=== PATIENT | female | born 1950 | race Caucasian/White ===

== ENCOUNTER 2017-07-24 08:46 | Day surgery (SDC) | payer OTHER ==
[2017-07-19 11:15] VITALS: BMI 26.4
[2017-07-24] MEDS ORDERED: PROPOFOL 20 ML ONE ×2 (09:13)
[2017-07-24] MEDS ORDERED: LIDOCAINE HCL/PF 2% SDV 5ML VIAL ONE (09:13)
[2017-07-24 11:22] VITALS: TEMP 97.7
[2017-07-24 11:50] VITALS: BP 121/69; PULSE 62
--- NOTE | 2017-07-26 14:33 | PATH ---
Surgical Pathology Report Patient Name: KALPANA PALACIOS [facility]. Rec. #: [id number] /Age/Gender: 1950 (Age: 67) / F Account: [id number] Location: [facility] Taken: 07/24/2017 Received: 07/24/2017 Reported: 07/26/2017 Physicians: Matilde Leonardo M.D. Specimen(s) Received A: RIGHT COLON B: TRANSVERSE COLON C: DESCENDING COLON D: RECTUM Clinical History Rule out colon cancer Postoperative diagnosis: Rule out microscopic colitis, diverticulosis, polyps Final Diagnosis A. COLON, RIGHT, BIOPSY: COLONIC MUCOSA WITH PROMINENT LYMPHOID AGGREGATES. B. TRANSVERSE COLON, BIOPSY: COLONIC MUCOSA WITH LYMPHOID AGGREGATE. C. DESCENDING COLON, BIOPSY: COLONIC MUCOSA WITH SMALL LYMPHOID AGGREGATE. D. BIOPSY: HYPERPLASTIC POLYP. Comment: No features of microscopic/lymphocytic colitis identified. Electronically Signed Matilde Marie M.D. Gross Description A. Received in formalin, labeled "right colon" are 2 valdes, irregular portions of soft tissue measuring 0.2 and 0.3 cm. in greatest dimension. The specimens are submitted in toto in one cassette. B. Received in formalin, labeled "transverse colon" are 2 valdes, irregular portions of soft tissue measuring 0.2 cm. in greatest dimension. The specimens are submitted in toto in one cassette. C. Received in formalin, labeled "descending colon" are 2 valdes, irregular portions of soft tissue measuring 0.3 and 0.4 cm. in greatest dimension. The specimens are submitted in toto in one cassette. D. Received in formalin, labeled "rectum" are 3 valdes, irregular portions of soft tissue ranging in size from 0.3-0.4 cm. in greatest dimension. The specimens are submitted in toto in [one] cassette. DAHIANA/07/25/2017 jazz/07/25/2017
== END 2017-07-24 12:07 | disposition home or self-care (01) ==
LOC: FASU-ENDO 08:46
PROVIDERS: ATTEND Internal Medicine Gastroenterology
PROC: 0DBL8ZX Excision of Transverse Colon, Via Natural or Artificial Opening Endoscopic, Diagnostic (ICD-10-PCS; 2017-07-24)
PROC: 0DBN8ZX Excision of Sigmoid Colon, Via Natural or Artificial Opening Endoscopic, Diagnostic (ICD-10-PCS; 2017-07-24)
PROC: 0DBP8ZX Excision of Rectum, Via Natural or Artificial Opening Endoscopic, Diagnostic (ICD-10-PCS; 2017-07-24)
PROC: 0DBM8ZX Excision of Descending Colon, Via Natural or Artificial Opening Endoscopic, Diagnostic (ICD-10-PCS; 2017-07-24)
PROC: 0DBH8ZX Excision of Cecum, Via Natural or Artificial Opening Endoscopic, Diagnostic (ICD-10-PCS; 2017-07-24)
PROC: 0DBK8ZX Excision of Ascending Colon, Via Natural or Artificial Opening Endoscopic, Diagnostic (ICD-10-PCS; principal; 2017-07-24 10:15)
DX: Z12.11 Encounter for screening for malignant neoplasm of colon (principal); K64.0 First degree hemorrhoids; D64.9 Anemia, unspecified; K63.89 Other specified diseases of intestine; K63.5 Polyp of colon

== ENCOUNTER 2021-04-18 20:37 | Emergency (ER) | payer OTHER ==
[2021-04-18 20:44] VITALS: BP 164/78; PULSE 81; TEMP 98.1; BMI 30.2
[2021-04-18] MEDS ORDERED: DIPHTH,PERTUSS(ACELL),TET 0.5 ML DISP.SYRIN IM ONE ×2 (22:59→23:09)
== END 2021-04-19 00:14 | disposition home or self-care (01) ==
LOC: JERFT 20:37
PROC: 3E0234Z Introduction of Serum, Toxoid and Vaccine into Muscle, Percutaneous Approach (ICD-10-PCS; principal; 2021-04-18)
DX: S01.01XA Laceration without foreign body of scalp, initial encounter (principal); W19.XXXA Unspecified fall, initial encounter; Y92.9 Unspecified place or not applicable
CPT/HCPCS: 70450-TC; 90471; 90715; 99284-25

== ENCOUNTER 2021-04-24 06:54 | Emergency (ER) | payer OTHER ==
[2021-04-24 07:16] VITALS: BP 132/71; PULSE 72; TEMP 98.7; BMI 25.4
== END 2021-04-24 07:30 | disposition home or self-care (01) ==
LOC: JER 06:54 → JERFT 06:54
DX: Z48.02 Encounter for removal of sutures (principal)
CPT/HCPCS: 99281-25

== ENCOUNTER 2021-09-22 08:00 | Day surgery (SDC) | payer OTHER ==
[2021-09-20 12:45] VITALS: BMI 26.7
[2021-09-22] MEDS ORDERED: PHENYLEPHRINE 2.5% OPHTH SOLN 15 ML BOTTLE ONE (08:26)
[2021-09-22] MEDS ORDERED: CIPROFLOXACIN 0.3% EYE DROPS 5 ML BOTTLE ONE (08:26)
[2021-09-22] MEDS ORDERED: CYCLOPENTOLATE 2% OPHTH SOLN 2 ML BOTTLE ONE (08:26)
[2021-09-22] MEDS ORDERED: TROPICAMIDE 1% OPHTH SOLN 15 ML BOTTLE ONE (08:26)
[2021-09-22] MEDS ORDERED: CYCLOPENTOLATE 2% OPHTH SOLN 2 ML BOTTLE OS ONE ×3 (08:30→08:40)
[2021-09-22] MEDS ORDERED: PHENYLEPHRINE 2.5% OPHTH SOLN 15 ML BOTTLE OS ONE ×3 (08:30→08:40)
[2021-09-22] MEDS ORDERED: CIPROFLOXACIN 0.3% EYE DROPS 5 ML BOTTLE OS ONE ×3 (08:30→08:40)
[2021-09-22] MEDS ORDERED: TROPICAMIDE 1% OPHTH SOLN 15 ML BOTTLE OS ONE ×3 (08:30→08:40)
[2021-09-22] MEDS ORDERED: LIDOCAINE 1% P/F 10 MG/ML VIAL ONE (09:00)
[2021-09-22] MEDS ORDERED: TETRACAINE 0.5% OPHTH SOLN 2 ML BOTTLE ONE (09:00)
[2021-09-22] MEDS ORDERED: BSS (NA/CA/MG/K) BALANCED SALT SOLUTION OPHTH SOLN 15 ML BOTTLE ONE (09:00)
[2021-09-22] MEDS ORDERED: CARBACHOL 0.01% INTRA-OCULAR 1.5 ML VIAL ONE (09:01)
[2021-09-22] MEDS ORDERED: NEO/POLYMYX B SULF/DEXAMETH OPHTHALMIC 5ML BOTTLE ONE (09:01)
[2021-09-22] MEDS ORDERED: MIDAZOLAM HCL 2 MG/2 ML SINGLE DOSE VIAL ONE (09:38)
[2021-09-22 13:13] VITALS: PULSE 62; TEMP 97.9
[2021-09-22 14:55] VITALS: BP 123/68
== END 2021-09-22 10:45 | disposition home or self-care (01) ==
LOC: FASU 08:00
PROVIDERS: ATTEND Ophthalmology
PROC: 08RK3JZ Replacement of Left Lens with Synthetic Substitute, Percutaneous Approach (ICD-10-PCS; principal; 2021-09-22 09:45)
DX: H26.8 Other specified cataract (principal)
CPT/HCPCS: 66984; V2632

== ENCOUNTER 2021-10-11 08:52 | Day surgery (SDC) | payer OTHER ==
[2021-10-04 11:10] VITALS: BMI 27.3
[2021-10-11] MEDS ORDERED: LIDOCAINE HCL/PF 1% SDV 5ML VIAL ONE (09:29)
[2021-10-11] MEDS ORDERED: EPINEPHrine/PF 1 MG/1 ML (1:1,000) AMPULE ONE (09:29)
[2021-10-11] MEDS ORDERED: NEO/POLYMYX B SULF/DEXAMETH OPHTHALMIC 5ML BOTTLE ONE (09:30)
[2021-10-11] MEDS ORDERED: CARBACHOL 0.01% INTRA-OCULAR 1.5 ML VIAL ONE (09:30)
[2021-10-11] MEDS ORDERED: BSS (NA/CA/MG/K) BALANCED SALT SOLUTION OPHTH SOLN 15 ML BOTTLE ONE (09:30)
[2021-10-11] MEDS ORDERED: TETRACAINE 0.5% OPHTH SOLN 2 ML BOTTLE ONE (09:30)
[2021-10-11] MEDS: PHENYLEPHRINE 2.5% OPHTH SOLN 15 ML BOTTLE ONE ×3 (10:00→10:10)
[2021-10-11] MEDS: TROPICAMIDE 1% OPHTH SOLN 15 ML BOTTLE ONE ×3 (10:00→10:10)
[2021-10-11] MEDS: CYCLOPENTOLATE 2% OPHTH SOLN 2 ML BOTTLE ONE ×3 (10:00→10:10)
[2021-10-11] MEDS: CIPROFLOXACIN 0.3% EYE DROPS 5 ML BOTTLE ONE ×3 (10:00→10:10)
[2021-10-11 10:08] VITALS: PULSE 64
[2021-10-11] MEDS ORDERED: MIDAZOLAM HCL 2 MG/2 ML SINGLE DOSE VIAL ONE (11:00)
[2021-10-11 11:38] VITALS: TEMP 97.8
[2021-10-11 12:24] VITALS: BP 121/74
== END 2021-10-11 12:15 | disposition home or self-care (01) ==
LOC: FASU 08:52
PROVIDERS: ATTEND Ophthalmology
PROC: 08RJ3JZ Replacement of Right Lens with Synthetic Substitute, Percutaneous Approach (ICD-10-PCS; principal; 2021-10-11 11:07)
DX: H26.8 Other specified cataract (principal)
CPT/HCPCS: 66984; V2632

== ENCOUNTER 2023-02-18 18:02 | Inpatient (IN) | payer OTHER ==
[2023-02-18 19:11] LABS: HEMATOCRIT 39.9 % (32.4-45.2); HEMOGLOBIN 13.3 G/dL (10.7-15.3); MCH 31.3 pg (25.7-33.7); MCHC 33.4 g/dl (32.0-36.0); MEAN CELL VOLUME 93.9 fl (80-96); MEAN PLT VOLUME 8.7 fl (7.5-11.1); RBC 4.25 10^6/uL (3.60-5.2); RDW 15.2 % (11.6-15.6); WHITE BLOOD COUNT 9.5 10^3/uL (4.0-10.8)
[2023-02-18 19:34] LABS: PLATELET ESTIMATE ADEQUATE
[2023-02-18 19:39] LABS: ALBUMIN 4.3 g/dl (3.4-5.0); BILIRUBIN,TOTAL 0.3 mg/dl (0.2-1); CALCIUM 9.5 mg/dl (8.5-10.1); CREATININE 0.7 mg/dl (0.6-1.3); POTASSIUM 3.7 mmol/L (3.5-5.1); TOT PROT 6.9 g/dl (6.4-8.2)
[2023-02-18 20:35] LABS: N-TERMINAL BNP 96.4 pg/ml (5-125)
[2023-02-18] MEDS ORDERED: ACETAMINOPHEN 325 MG TABLET (FP) ONE (22:33)
[2023-02-18] MEDS ORDERED: ACETAMINOPHEN 325 MG TABLET (FP) PO ONE (22:48)
[2023-02-19 03:31] VITALS: BMI 27.6
[2023-02-19 08:02] LABS: HEMATOCRIT 36.4 % (32.4-45.2); MCH 30.6 pg (25.7-33.7); MCHC 32.9 g/dl (32.0-36.0); MEAN CELL VOLUME 92.8 fl (80-96); MEAN PLT VOLUME 8.6 fl (7.5-11.1); PLATELET COUNT 238.7 10^3/uL (134-434); RBC 3.92 10^6/uL (3.60-5.2); RDW 14.8 % (11.6-15.6); WHITE BLOOD COUNT 7.9 10^3/uL (4.0-10.8)
[2023-02-19 08:39] LABS: CALCIUM 8.9 mg/dl (8.5-10.1); CREATININE 0.5 mg/dl (0.6-1.3); POTASSIUM 3.9 mmol/L (3.5-5.1)
[2023-02-19] MEDS: ENOXAPARIN NA (PORCINE) 40 MG/0.4 ML DISP.SYRIN SQ SCH (10:36)
[2023-02-19] MEDS ORDERED: ACETAMINOPHEN 325 MG TABLET (FP) PO PRN (15:18)
[2023-02-19 17:54] VITALS: RESP 17
[2023-02-19] MEDS ORDERED: ATORVASTATIN CA 40 MG TABLET (FP) PO SCH (22:00)
[2023-02-20 08:45] LABS: ALBUMIN 3.8 g/dl (3.4-5.0); BILIRUBIN,TOTAL 0.6 mg/dl (0.2-1); CREATININE 0.5 mg/dl (0.6-1.3); POTASSIUM 4.3 mmol/L (3.5-5.1)
[2023-02-20] MEDS: ENOXAPARIN NA (PORCINE) 40 MG/0.4 ML DISP.SYRIN SQ SCH (09:57)
[2023-02-20 10:03] VITALS: BP 129/74; PULSE 65; TEMP 98
[2023-02-20 11:30] LABS: BASO % 0.4 % (0-2.0); EOS % 1.7 % (0-4.5); HEMATOCRIT 36.8 % (32.4-45.2); HEMOGLOBIN 12.4 GM/dL (10.7-15.3); LYMPH % 22.3 % (8-40); MCH 30.1 pg (25.7-33.7); MCHC 33.6 g/dl (32.0-36.0); MEAN CELL VOLUME 89.7 fl (80-96); MEAN PLT VOLUME 8.7 fl (7.5-11.1); MONO % 10.2 % (3.8-10.2); NEUT % 65.4 % (42.8-82.8); PLATELET COUNT 237 10^3/uL (134-434); RBC 4.11 M/mm3 (3.60-5.2); RDW 14.7 % (11.6-15.6); WHITE BLOOD COUNT 5.2 K/mm3 (4.0-10.0)
== END 2023-02-20 12:12 | disposition home or self-care (01) | DRG 87 ==
LOC: FER 18:02 → FM/S 22:55 → OBSVTOIN 22:55
PROVIDERS: ADMIT Internal Medicine; ATTEND Internal Medicine
DX: S06.891A Other specified intracranial injury with loss of consciousness of 30 minutes or less, initial encounter (principal); M54.9 Dorsalgia, unspecified; I10 Essential (primary) hypertension; E78.5 Hyperlipidemia, unspecified; R73.03 Prediabetes; W19.XXXA Unspecified fall, initial encounter; Y93.9 Activity, unspecified; Y92.89 Other specified places as the place of occurrence of the external cause; Y99.9 Unspecified external cause status
CPT/HCPCS: 36415; 70450-TC; 70551-TC; 71045-TC-FY; 72125-TC; 72141-TC; 80048; 80053; 80061; 81003; 82306; 82607; 82746; 83036; 83880; 84443; 84484; 85025; 85027; 85379; 87635; 93005; 93306-TC; 93880-TC; 97116-GP; 97161-GP; 99285-25